=== PATIENT | male | born 1995 | race Caucasian/White ===

== ENCOUNTER 2017-12-10 22:39 | Emergency (ER) | payer OTHER ==
[2017-12-10] MEDS ORDERED: Adacel (T-DAP) 0.5 ML VIAL ONE (23:59)
[2017-12-10] MEDS ORDERED: Sulfameth/Trimethoprim DS 800-160mg TAB ONE (23:59)
[2017-12-10] MEDS ORDERED: Ibuprofen 200 MG TAB ONE (23:59)
[2017-12-11] MEDS ORDERED: Cephalexin 250 MG CAP ONE (00:01)
[2017-12-11 00:31] LABS: #Eosinphils 0.5 thou/uL (0.0-0.7); #Lymphocytes 1.3 thou/uL (1.20-3.40); #Monocytes 1.1 thou/uL (0.11-0.59); #Neutrophils 5.5 thou/uL (1.40-6.50); %Basophils 0.4 % (0.0-1.0); %Eosinophils 5.4 % (0.0-10.0); %Lymphocytes 15.6 % (21.0-51.0); %Neutrophils 65.6 % (42.0-75.0); Hemoglobin 15.4 g/dL (14.0-18.0); Mean Corpuscular HGB CONC 34.1 g/dL (32.0-36.0); Mean Corpuscular Hemoglobin 31.9 pg (27.0-31.0); Mean Corpuscular Volume 93.7 fl (80.0-94.0); Mean Platelet Volume 7.2 fL (7.4-10.4); Platelet Count 183 thou/uL (130-400); Red Blood Cell (RBC) Count 4.82 mill/uL (4.70-6.10); White Blood Cell (WBC) Count 8.4 thou/uL (4.8-10.8)
== END 2017-12-11 00:41 | disposition home or self-care (01) ==
LOC: ERS 22:39
DX: I80.3 Phlebitis and thrombophlebitis of lower extremities, unspecified (principal); L03.116 Cellulitis of left lower limb
CPT/HCPCS: 36415; 85025; 87040; 90471; 90715; 99283

== ENCOUNTER 2017-12-12 22:19 | Emergency (ER) | payer OTHER | END 2017-12-13 00:05 | disposition home or self-care (01) | LOC: ERS 22:19 | DX: R20.2 Paresthesia of skin (principal); T37.0X5A Adverse effect of sulfonamides, initial encounter; T36.1X5A Adverse effect of cephalosporins and other beta-lactam antibiotics, initial encounter; L03.116 Cellulitis of left lower limb | CPT/HCPCS: 99283 ==

== ENCOUNTER 2019-05-27 15:43 | Emergency (ER) | payer OTHER ==
--- NOTE | 2019-05-27 16:19 | RAD ---
EXAM: Chest PA and lateral: HISTORY: Chest pain. Dizziness. COMPARISON: None FINDINGS: Heart: Normal cardiac silhouette Aorta: Unremarkable Pulmonary vessels: Normal Costophrenic angles: Costophrenic angles are clear. Lungs: No consolidation or masses. Pneumothorax: No pneumothorax Osseous structures: No osseous abnormalities IMPRESSION: No acute cardiopulmonary process.
[2019-05-27 17:23] LABS: #Eosinphils 0.1 thou/uL (0.0-0.7); #Lymphocytes 1.3 thou/uL (1.20-3.40); #Monocytes 0.6 thou/uL (0.11-0.59); #Neutrophils 4.7 thou/uL (1.40-6.50); %Basophils 0.4 % (0.0-1.0); %Eosinophils 1.1 % (0.0-10.0); %Lymphocytes 19.7 % (21.0-51.0); %Monocytes 8.4 % (0.0-10.0); %Neutrophils 70.4 % (42.0-75.0); Hemoglobin 14.8 g/dL (14.0-18.0); Mean Corpuscular HGB CONC 33.9 g/dL (32.0-36.0); Mean Corpuscular Hemoglobin 31.4 pg (27.0-31.0); Mean Corpuscular Volume 92.6 fL (78.0-98.0); Mean Platelet Volume 7.3 fL (7.4-10.4); Platelet Count 227 thou/uL (130-400); RBC Distribution Width 11.3 % (11.5-14.5); Red Blood Cell (RBC) Count 4.72 mill/uL (4.70-6.10); White Blood Cell (WBC) Count 6.7 thou/uL (4.8-10.8)
== END 2019-05-27 18:37 | disposition home or self-care (01) ==
LOC: ERS 15:43
DX: R07.9 Chest pain, unspecified (principal)
CPT/HCPCS: 36415; 71046; 84484; 85025; 85379; 93005

== ENCOUNTER 2020-03-30 05:43 | Observation (INO) | payer OTHER ==
[2020-03-30] MEDS ORDERED: Heparin 10,000 UNITS/ 10 ML VIAL ONE ×3 (06:51→09:40)
[2020-03-30] MEDS ORDERED: Lidocaine 1% (PF) 30 ML VIAL ONE (06:51)
[2020-03-30] MEDS ORDERED: Midazolam HCl 2 mg/2 ml Vial ONE ×2 (07:13→08:08)
[2020-03-30] MEDS ORDERED: Fentanyl 100 MCG/2 ML VIAL ONE (07:23)
[2020-03-30] MEDS ORDERED: Lidocaine 1% PF 5 ML VIAL ONE (08:47)
[2020-03-30] MEDS ORDERED: Ondansetron PF 4 MG/2 ML Vial ONE (08:47)
[2020-03-30] MEDS ORDERED: PROPOFOL 200 MG/20 ML VIAL ONE (08:47)
[2020-03-30] MEDS ORDERED: Heparin 25,000 units/D5W 500 ML ONE (09:03)
[2020-03-30] MEDS ORDERED: Isoproterenol 0.2 MG/1 ML AMP ONE (09:40)
[2020-03-30] MEDS ORDERED: Meperidine HCl/PF 25 MG/ML VIAL ONE (10:20)
[2020-03-30] MEDS ORDERED: Protamine Sulfate 50 MG/5 ML VIAL ONE (10:20)
[2020-03-30] MEDS ORDERED: Aspirin 81 mg Enteric Coated Tablet PO SCH (11:45)
[2020-03-30] MEDS ORDERED: Acetaminophen/Codeine 30-300mg Tablet PO PRN ×2 (11:45)
--- NOTE | 2020-03-30 14:49 | EKG ---
Test Reason : POST ABLATION Blood Pressure : / mmHG Vent. Rate : 088 BPM Atrial Rate : 088 BPM P-R Int : 152 ms QRS Dur : 090 ms QT Int : 352 ms P-R-T Axes : 074 088 048 degrees QTc Int : 425 ms Normal sinus rhythm Normal ECG No previous ECGs available Confirmed by GONZÁLEZ WALTON M.D. ([id number] on 03/30/2020 2:49:27 PM Referred By: [facility] Confirmed By:GONZÁLEZ WALTON M.D.
[2020-03-30 16:49] VITALS: BMI 22.4
--- NOTE | 2020-03-30 19:15 | OP ---
DATE OF PROCEDURE: 03/30/2020 PROCEDURE PERFORMED: Electrophysiology study and radiofrequency ablation. REASON FOR PROCEDURE: Mr. Benitez is a 25-year-old young man with frequent paroxysmal supraventricular tachycardia documented on event monitors, here for EP study ablation. DESCRIPTION OF PROCEDURE: The patient received general anesthesia by anesthesia specialist. Left and right femoral venous areas were prepped, draped, anesthetized using subcutaneous lidocaine. Under ultrasound guidance, the left side was cannulated x2, a 6 and 8-[place] sheath was used to advance a Decanav and Octopolar catheter into the CS and the right ventricle, His bundle, right atrial position. Pacing, mapping, and recording were performed at each location including pacing the left atrium via the CS. The following baseline findings were noted. Baseline rhythm was sinus rhythm, cycle length 930 milliseconds, TN 157 milliseconds, QRS 78 millisecond, QT 460 milliseconds. The AH 106 milliseconds, HV 48 milliseconds. The AV Wenckebach cycle length measured about 260 milliseconds without preexcitation. Retrograde Wenckebach cycle length measured about 360 milliseconds with eccentric activation noted at the posterolateral aspect of the CS. Atrial extrastimuli testing reliably induced tachycardia. The tachycardia appears to be a narrow complex tachycardia with VA timing shortest about 45 milliseconds. The tachycardia had eccentric atrial activation in the posterolateral side of left atrium, at CS 1-2, when readjusted CS about 3-4/5-6 position. 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 At this point, through the rights sided sheaths, an 11-[place] sheath was used to advance an intracardiac echocardiogram probe, which was used to monitor the catheter manipulation, the transseptal puncture, and the pericardial space throughout the procedure. Also through the right side, an SL2 catheter was advanced to the right atrium and with the help of powered [place] catheter, transseptal puncture was performed. Prior to this, IV heparin was started in a bolus and drip fashion and was periodically adjusted to keep ACT over 350. Following that, 3D map of the right atrium was obtained during tachycardia. Earliest activation was mapped during tachycardia to the mitral valve anulus about 4 o'clock position. Radiofrequency ablation was delivered at the earliest activation and the site of the pathways which promptly created retrograde VA block and no accessory pathway conduction was seen. Total of 8 lesions were placed, total duration 2 minutes and 25 seconds at 40 benedict. After the ablation, the tachycardia was not re-inducible with burst atrial pacing maneuvers and the ventricular activation was also remained concentric. AV Wenckebach cycle length after ablation was 290 milliseconds. AV gary ERP was 600/180 milliseconds without evidence of dual AV node physiology or extra pathway. Also during the initial pacing maneuvers, transient but sustained atrial flutter was seen, which eventually self-terminated, appears to be typical isthmus dependent morphology. After the ablation, we were not able to reduce this flutter. After this, the catheters were removed from the left side and heparin was stopped. Pericardial space change was unchanged and cardiac silhouette did not reveal pericardial effusion either. The sheaths were exchanged for short sheaths and Vascade closure was performed in all four femoral venous access sites. The patient tolerated the procedure well. No complications noted. CONCLUSION: 1. 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 2. Accessory pathway ablation performed, producing VA block and the previously conducting speed and rendering the tachycardia non re-inducible, on and off Isuprel. 3. Normal AV gary and His-Purkinje function pre and post ablation. 4. No evidence of additional accessory pathways or dual AV node physiology present. 5. Transient atrial flutter, non re-inducible post ablation. PLAN: Routine post ablation care. Monitor for recurrent supraventricular arrhythmias. Job ID: [id number]
[2020-03-31 08:25] VITALS: BP 118/69; TEMP 97.6
[2020-03-31] MEDS ORDERED: Aspirin 81 mg Enteric Coated Tablet PO SCH (09:00)
--- NOTE | 2020-04-03 09:53 | DIS ---
DATE OF ADMISSION: 03/30/2020 DATE OF DISCHARGE: 03/31/2020 Dictated by Elida Ontiveros, nurse practitioner, as a scribe for Dr. Juan Pablo Castaneda. DIAGNOSIS: Supraventricular tachycardia status post EP study and ablation. HISTORY OF PRESENT ILLNESS: Mr. Benitez is a 25-year-old man with frequent paroxysmal supraventricular tachycardia. He was found to have easily inducible AV reentrant tachycardia utilizing a left posterior lateral accessory pathway. This required transseptal access and heparinization. His accessory pathway was ablated and noninducible at the end of the case. He was kept overnight for observation due to transseptal access and heparin administration. He has done well postop and has remained in sinus rhythm without recurrence overnight. He has had no bleeding complications and is eager to discharge home today. DISCHARGE MEDICATIONS: Aspirin 81 mg daily x30 days. OBJECTIVE: Vital signs have been stable. Physical exam is normal. Bilateral groin sites are stable without hematoma or bleeding complication evident. DISCHARGE INSTRUCTIONS: No heavy lifting for at least 2 weeks or until groin sites are well healed. No driving for 1 week. Contact [facility] with any postablation concerns and follow up in 6 weeks or sooner if symptoms dictate. Job ID: [id number]
== END 2020-03-31 12:41 | disposition home or self-care (01) ==
LOC: CCL 05:43 → 2SW 10:41 → CCL 12:39
PROVIDERS: ADMIT Internal Medicine Cardiovascular Disease; ATTEND Internal Medicine Cardiovascular Disease
PROC: 02583ZZ Destruction of Conduction Mechanism, Percutaneous Approach (ICD-10-PCS; principal; 2020-03-30)
PROC: 02K83ZZ Map Conduction Mechanism, Percutaneous Approach (ICD-10-PCS; 2020-03-30)
PROC: 4A023FZ Measurement of Cardiac Rhythm, Percutaneous Approach (ICD-10-PCS; 2020-03-30)
PROC: 4A0234Z Measurement of Cardiac Electrical Activity, Percutaneous Approach (ICD-10-PCS; 2020-03-30)
DX: I47.1 Supraventricular tachycardia (principal); I48.92 Unspecified atrial flutter; G90.8 Other disorders of autonomic nervous system; M05.771 Rheumatoid arthritis with rheumatoid factor of right ankle and foot without organ or systems involvement; Z88.1 Allergy status to other antibiotic agents; Z88.2 Allergy status to sulfonamides; Z91.018 Allergy to other foods
CPT/HCPCS: 76942; 85347; 93005; 93010; 93462; 93613; 93621; 93623; 93653; 93662; C1730; C1732; C1759; G0378; J1644; J2001; J2175; J2250; J2405; J2704; J2720; J3010

== ENCOUNTER 2020-04-25 18:44 | Emergency (ER) | payer OTHER ==
[2020-04-26 12:12] LABS: SARS-CoV-2 MS2 Positive; SARS-CoV-2 N Gene Negative; SARS-CoV-2 S Gene Negative; SARS-CoV-2 by NAA Not Detected (NotDetected); SARS-CoV-2 orf1ab Negative
== END 2020-04-25 19:41 | disposition home or self-care (01) ==
LOC: ERS 18:44
DX: M79.10 Myalgia, unspecified site (principal); R05 Cough; Z20.828 Contact with and (suspected) exposure to other viral communicable diseases
CPT/HCPCS: 87635; 99283; U0003